=== PATIENT | female | born 1930 | race Caucasian/White ===

== ENCOUNTER 2017-03-13 17:47 | Emergency (ER) | payer MEDICARE ==
--- NOTE | 2017-03-16 16:46 | ER ---
ADMIT: 03/13/2017 RM/LOC: ER [facility] MR#: [id number] [facility] [address] [place] [id number] DEBRASALLY RAPHAEL I [address] [place] [address] Emergency Room Report SEX: F AGE: 86 : 1930 CORRECTED: 03/14/2017 0628 NJV DATE: 03/13/2017 HISTORY OF PRESENT ILLNESS: The patient is an 86-year-old, very healthy looking female, complaining of dizziness and lightheadedness that started a couple of days ago. She feels tired at work and she still works at her age. She has not felt well since Monday. REVIEW OF SYSTEMS: Positive for dizziness. She says that in the past, she has had urinary tract infections and does not seem to get the right antibiotic to take care of this infection completely. She also says that she has a history of uterine prolapse and has had a pessary in the past. PAST MEDICAL HISTORY: Hypertension, GERD, ovarian tumor, T and A, and appendectomy. MEDICATIONS: She takes Prilosec and Diovan. ALLERGIES: SULFA. PHYSICAL EXAMINATION: VITAL SIGNS: Blood pressure 140/96, heart rate of 88, respirations 16, temp is 96.8, O2 sats 94%. Mildly anxious. Very pleasant. Daughter at bedside. RESPIRATION: Chest nontender. CVS: Regular rate and rhythm. SKIN: Good color. BACK: No CVA tenderness. EXTREMITIES: Well perfused. No edema. NEURO: Oriented x4. LABORATORY DATA: CBC within normal limits. Chemistry: Sodium of 132 with a potassium of 3.2, glucose 109. Urine has leukocytes 3+, clumps of wbc's, wbc's 70, bacteria rare and is hazy. GFR is 67. I spoke with her, she almost did not want any antibiotics to treat her UTI, gave her Pyridium and Macrodantin or nitrofurantoin. Mentioned that we would be calling her if the prescription needs to be change in a couple of days after the culture and sensitivity is done. CLINICAL IMPRESSION: Urinary tract infection. PLAN: I also noted that she had some irregular heartbeat in addition to her EKG, which was totally normal and reviewed by Dr. Urena. Sinus rhythm rate ADMIT: 03/13/2017 RM/LOC: ER [facility] MR#: [id number] [id number] SALLY RICHARDSON I [address] [facility] [place] [place] [address] Emergency Room Report SEX: F AGE: 86 : 1930 at 78 beats per minute. She has some prolonged QT interval. She declined a Holter monitor. She says in the past, she had been asked that and she does not want a Holter monitor and if she , she will whenever she is ready to, so she ended up leaving with a prescription for Macrodantin and Pyridium and gave her a dose in the emergency room with some apple sauce, tried to coat her GI tract. She kept going to the bathroom for the time that she was in the ER. She went 5 times to the bathroom. Instructions given to go ahead and increase the potassium rich foods; Pyridium t.i.d. for 2 days; Macrodantin for UTI, continue in the morning the next dose. Follow up with Dr. Schwartz for further care and recheck the urine. BON Flores / Tyrone Urena MD / jyoti JOB #: [id number] CC: Tyrone Urena MD, Attending Physician Elvis Schwartz MD, Family Physician CORRECTED: 03/14/2017 0628 NJV
== END 2017-03-13 19:44 | disposition home or self-care (01) ==
LOC: ER 17:47
DX: N39.0 Urinary tract infection, site not specified (principal); I10 Essential (primary) hypertension; Z90.49 Acquired absence of other specified parts of digestive tract; Z90.89 Acquired absence of other organs; Z88.2 Allergy status to sulfonamides; Z79.899 Other long term (current) drug therapy